=== PATIENT | male | born 1975 | race Caucasian/White ===

== ENCOUNTER 2016-08-09 05:57 | Emergency (ER) | payer OTHER ==
[~2016-08-09] VITALS: Ht 190.5 cm; Wt 104.8 kg
[~2016-08-09 05:57] MED LIST: ALEVE220 M2 PO; BACTRIM,SEPT1 TABLET PO; HYDROCODON-ACE1 EAC7 PO; IBUPROFEN800 MG PO; KEFLEX500 MG PO; MOTRIN600 MG PO; NORCO 5/3251 TABLET PO; PERCOCET 5/31 TABLET PO; ULTRAM50 MG PO; VALIUM5 MG PO; ZOFRAN ODT8 MG PO
[2016-08-09 05:59] VITALS: BP 145/87
[2016-08-09] MEDS ORDERED: AUGMENTIN875 MG PO (06:28)
[2016-08-09] MEDS ORDERED: FLONASE16 G1 BOTH NARES (06:28)
== END 2016-08-09 07:02 | disposition home or self-care (01) ==
LOC: EME 05:57
DX: H66.92 Otitis media, unspecified, left ear (principal)
CPT/HCPCS: 99281; 99283